=== PATIENT | male | born 1995 | race Caucasian/White ===

== ENCOUNTER 2019-04-18 06:53 | Emergency (ER) | payer OTHER ==
[2019-04-18] MEDS ORDERED: Ondansetron INJ* 2 MG/ML VIAL IV ONE (07:16)
[2019-04-18] MEDS ORDERED: NS 0.9% 1000 ML** 1,000 ML IV ONE (07:16)
--- NOTE | 2019-04-18 07:18 | ED ---
Head Injury - HPI Summary HPI Summary: This pt is a 23 y/o male presenting to [facility] c/o headache s/p head strike 2 days ago, 04/16/19. Pt reports he was coming out of a convenient store when he slipped down a couple of steps and struck his head at around 10:00 when it had just begun to snow. Denies LOC. Pt states he first heard his back pop but was able to ambulate to his house that was near by. He notes that throughout the day on 04/16/19 he progressively felt worse, at first feeling dizzy and woozy and around dinner time having nausea and 1 episode of vomiting. Denies any other vomiting episodes since then. Pt notes he has been having trouble concentrating, keeping thoughts together, and with photophobia. Currently reports mild nausea. PMHx: concussion. Pt reports his symptoms today feel like his concussion in the past. - History Of Current Complaint Chief Complaint: EDHeadInjury Stated Complaint: HIT HEAD PER PT Time Seen by Provider: 04/18/19 07:11 Hx Obtained From: Patient Mechanism Of Injury: Blunt Trauma, Fall From Height Of: - a couple of steps Onset/Duration: Still Present Onset of Pain: Days Severity Initially: Moderate Pain Intensity: 6 Pain Scale Used: 0-10 Numeric Location of Head Injury: Diffuse Aggravating Factor(s): Other: - nothing Alleviating Factor(s): Other: - nothing Associated Signs And Symptoms: Nausea, Vomiting, Headache, Other: - POSITIVE: trouble concentrating, dizzy (woozy), photophobia. NEGATIVE: LOC - Allergies/Home Medications Allergies/Adverse Reactions: Allergies Allergy/AdvReac Type Severity Reaction Status Date / Time cefdinir [From Omnicef] Allergy Unknown Verified 04/18/19 06:58 Reaction Details Home Medications: Home Medications Lisdexamfetamine(NF) [Vyvanse(NF)] 40 mg PO DAILY 04/18/19 [History Confirmed ] PMH/Surg Hx/FS Hx/Imm Hx Endocrine/Hematology History: Denies: Hx Diabetes Cardiovascular History: Denies: Hx Hypertension Neurological History: Reports: Other Neuro Impairments/Disorders - concussion - Surgical History Surgical History: Yes Surgery Procedure, Year, and Place: Inguinal hernia Infectious Disease History: No Infectious Disease History: Denies: Traveled Outside the [place] in Last 30 Days - Family History Family History: FHx alcoholism and breast CA - Social History Alcohol Use: Occasionally Substance Use Type: Reports: None Smoking Status (MU): Never Smoked Tobacco Review of Systems Negative: Fever Positive: Photophobia Positive: Vomiting, Nausea Neurological: Other - POSITIVE: trouble concentrating, dizzy Positive: Headache All Other Systems Reviewed And Are Negative: Yes Physical Exam - Summary Physical Exam Summary: GENERAL: Patient is a well-developed and nourished male who is lying comfortable in the stretcher. Patient is not in any acute respiratory distress. HEAD AND FACE: No signs of trauma. No ecchymosis, hematomas or skull depressions. No sinus tenderness. EYES: PERRLA, EOMI x 2, No injected conjunctiva, no nystagmus. EARS: Hearing grossly intact. Ear canals and tympanic membranes are within normal limits. MOUTH: Oropharynx within normal limits. NECK: Supple, trachea is midline, no adenopathy, no JVD, no carotid bruit, no c- spine tenderness, neck with full ROM. CHEST: Symmetric, no tenderness at palpation LUNGS: Clear to auscultation bilaterally. No wheezing or crackles. CVS: Regular rate and rhythm, S1 and S2 present, no murmurs or gallops appreciated. ABDOMEN: Soft, non-tender. No signs of distention. No rebound no guarding, and no masses palpated. Bowel sounds are normal. EXTREMITIES: FROM in all major joints, no edema, no cyanosis or clubbing. NEURO: Alert and oriented x 3. No acute neurological deficits. Speech is normal and follows commands. SKIN: Dry and warm GCS: 15 Triage Information Reviewed: Yes Vital Signs On Initial Exam: Initial Vitals Temp Pulse Resp BP Pulse Ox 97.9 F 74 15 135/99 100 04/18/19 06:56 04/18/19 06:56 04/18/19 06:56 04/18/19 06:56 04/18/19 06:56 Vital Signs Reviewed: Yes Procedures - Sedation Patient Received Moderate/Deep Sedation with Procedure: No Diagnostics - Vital Signs Vital Signs Temp Pulse Resp BP Pulse Ox 04/18/19 06:56 97.9 F 74 15 135/99 100 - Laboratory Result Diagrams: 04/18/19 07:40 04/18/19 07:40 Lab Statement: Any lab studies that have been ordered have been reviewed, and results considered in the medical decision making process. - CT Brain CT CT Interpretation Completed By: Radiologist Summary of CT Findings: IMPRESSION: No intracranial mass or hemorrhage is noted. Dr. Euceda has reviewed this report. Head Injury Course/Dx Assessment/Plan: This pt is a 23 y/o male presenting to [facility] c/o headache s/p head strike 2 days ago, 04/16/19. Pt reports he was coming out of a convenient store when he slipped down a couple of steps and struck his head at around 10: 00 when it had just begun to snow. Denies LOC. Pt states he first heard his back pop but was able to ambulate to his house that was nearby. He notes that throughout the day on 04/16/19 he progressively felt worse, at first feeling dizzy and woozy and around dinner time having nausea and 1 episode of vomiting. Denies any other vomiting episodes since then. Pt notes he has been having trouble concentrating, keeping thoughts together, and with photophobia. Currently reports mild nausea. Blood work without any significant abnormality. Head CT impression: No acute intracranial pathology. In the ED course the patient was given IV fluids for hydration. The patient was given Zofran for nausea vomiting. At this point the patient is feeling much better. At this point, I discussed all the findings and test results with the patient. Patient was instructed to return to the emergency room immediately if any of the symptoms return or worsen. Patient understands and agree. Neurological exam before discharge: Patient is alert and oriented x 3. No acute neurological deficits. Patient's vital signs are stable. Patient is to follow up with PCP in the next 2 3 days. They understand and agree. The plan of care was discussed with the patient and patient understands and agrees with the plan of care. All questions were answered at patient satisfaction. There were no further complaints or concerns. - Diagnoses Provider Diagnoses: Head contusion, Nausea and vomiting Discharge ED - Sign-Out/Discharge Documenting (check all that apply): Patient Departure - Discharge home - Discharge Plan Condition: Stable Disposition: HOME Prescriptions: Ondansetron ODT TAB* [Zofran 4 MG Odt TAB*] 4 mg PO Q8H PRN #10 tab.odt PRN Reason: Vomiting Patient Education Materials: Contusion in Adults (ED) Forms: *School Release Referrals: [facility] [Outside] Additional Instructions: FOLLOW UP WITH YOUR PRIMARY CARE PROVIDER IN 2-3 DAYS. RETURN TO THE EMERGENCY DEPARTMENT FOR ANY WORSENING OR NEW SYMPTOMS. - Billing Disposition and Condition Condition: STABLE Disposition: Home - Attestation Statements Document Initiated by Sherri: Yes Documenting Scribe: Tasia Denis Provider For Whom Shahidibestee is Documenting (Include Credential): Aaron Euceda MD Scribe Attestation: ITasia, scribed for Aaron Euceda MD on 04/19/19 at 1837. Scribe Documentation Reviewed: Yes Provider Attestation: The documentation as recorded by the Tasia cabral accurately reflects the service I personally performed and the decisions made by me, Aaron Euceda MD Status of Scribe Document: Viewed
[2019-04-18 07:59] LABS: ABS Eosinophils 0.1 10^3/ul (0-0.6); ABS Lymphocytes 2.2 10^3/ul (1.0-4.8); ABS Monocytes 0.8 10^3/ul (0-0.8); ABS Neutrophils 5.4 10^3/ul (1.5-7.7); Eosinophil % 1.7 %; Hematocrit 46 % (42-52); Hemoglobin 16.5 g/dL (14.0-18.0); Lymphocyte % 25.6 %; Mean Corpuscular HGB Conc 36 g/dL (31-36); Mean Corpuscular Hemoglobin 33 pg (27-31); Mean Corpuscular Volume 91 fL (80-94); Mean Platelet Volume 8.5 fL (7.4-10.4); Platelet Count 206 10^3/uL (150-450); Red Blood Count 5.07 10^6 /uL (4.18-5.48); Red Cell Distribution Width 13 % (10-15); White Blood Count 8.6 10^3/uL (3.5-10.8)
[2019-04-18 08:04] LABS: Albumin 4.7 g/dL (3.2-5.2); Calcium 9.9 mg/dL (8.6-10.3); EGFR African American 114.1 (>60); EGFR Non-African American 94.3 (>60); Globulin 2.4 g/dL (2-4); Potassium 4.1 mmol/L (3.5-5.0); Total Bilirubin 0.9 mg/dL (0.2-1.0); Total Protein 7.1 g/dL (6.4-8.9)
[2019-04-18 09:15] VITALS: BP 131/72
== END 2019-04-18 09:17 | disposition home or self-care (01) ==
LOC: ED 06:53
DX: S00.93XA Contusion of unspecified part of head, initial encounter (principal); R11.2 Nausea with vomiting, unspecified; W00.1XXA Fall from stairs and steps due to ice and snow, initial encounter; Y92.512 Supermarket, store or market as the place of occurrence of the external cause; Z79.899 Other long term (current) drug therapy; Z88.1 Allergy status to other antibiotic agents
CPT/HCPCS: 36415; 70450; 80053; 82375; 85025; 96361; 96374; 99283; J2405